=== PATIENT | female | born 1975 | race Caucasian/White ===

== ENCOUNTER 2017-12-26 16:10 | Outpatient (CLI) | payer OTHER | END 2017-12-26 16:11 | disposition home or self-care (01) | LOC: BICMAMMO 16:10 | PROVIDERS: ATTEND Obstetrics & Gynecology | DX: Z12.31 Encounter for screening mammogram for malignant neoplasm of breast (principal) | CPT/HCPCS: 77063; 77067 ==

== ENCOUNTER 2020-08-25 10:27 | Outpatient (CLI) | payer OTHER ==
--- NOTE | 2020-08-25 11:06 | RAD ---
XR Abdomen 2 View HISTORY: Constipation COMPARISON: None. FINDINGS: The bowel gas pattern is unremarkable. No free air or differential fluid levels are seen. There is fe tenisha material in the colon. No suspicious calcifications are identified. Bony structures are unremarkable.
== END 2020-08-25 10:28 | disposition home or self-care (01) ==
LOC: BICRAD 10:27
PROVIDERS: ATTEND Internal Medicine Gastroenterology
DX: K59.09 Other constipation (principal); K92.1 Melena
CPT/HCPCS: 74019

== ENCOUNTER 2020-09-13 13:16 | Outpatient (CLI) | payer OTHER ==
--- NOTE | 2020-09-13 14:38 | MMO ---
Bilateral MAMMO Bilat Screen [facility]. CLINICAL HISTORY: Patient is 45 years old and is seen for screening. The patient has the following family history of breast cancer: paternal grandmother, in her 60's. The patient has no personal history of cancer. VIEWS: The views performed were: bilateral craniocaudal with tomosynthesis and bilateral mediolateral oblique with tomosynthesis. FILMS COMPARED: The present examination has been compared to prior imaging studies performed at [facility] on 03/11/2015 and 12/26/2017. This study has been interpreted with the assistance of computer-aided detection. MAMMOGRAM FINDINGS: There are scattered fibroglandular densities. There are no suspicious masses, suspicious calcifications, or new areas of architectural distortion. IMPRESSION: THERE IS NO MAMMOGRAPHIC EVIDENCE OF MALIGNANCY. A ROUTINE FOLLOW-UP MAMMOGRAM IN 1 YEAR IS RECOMMENDED. THE RESULTS OF THIS EXAM WERE SENT TO THE PATIENT. ACR BI-RADS Category 1 - Negative MAMMOGRAPHY NOTE: 1. A negative mammogram report should not delay a biopsy if a dominant of clinically suspicious mass is present. 2. Approximately 10% to 15% of breast cancers are not detected by mammography. 3. Adenosis and dense breasts may obscure an underlying neoplasm. Reported by: ANTOLIN POLANCO MD Electonically Signed: [id number]
== END 2020-09-13 13:17 | disposition home or self-care (01) ==
LOC: BICMAMMO 13:16
PROVIDERS: ATTEND Family Medicine
DX: Z12.31 Encounter for screening mammogram for malignant neoplasm of breast (principal); Z80.3 Family history of malignant neoplasm of breast
CPT/HCPCS: 77063; 77067

== ENCOUNTER 2020-09-30 07:32 | Outpatient (CLI) | payer OTHER ==
--- NOTE | 2020-09-30 10:06 | ULT ---
HEPATIC ULTRASOUND WITH DOPPLER: INDICATION: Liver lesion. Liver disease. COMPARISON: Comparison is made to a hepatic ultrasound of 09/21/2008 and an MRI of abdomen of 12/18/2004. The lesio n in the liver has been previously described in the left lobe that is probable hemangioma. FINDINGS: Heterogeneous somewhat echogenic lesion in the left lobe of the liver is again seen. It has increase d in size when compared to the ultrasound exam of 10/01/2008. It measures 3.0 x 3.8 cm today. Prior measurements were 2.8 cm maximal dimension. Other than increasing size, it has similar imaging sinan acteristics to the prior study. Color Doppler no active disease spectral analysis with Doppler studies were performed on the hepatic vessels. Portal veins, hepatic veins, hepatic artery, aorta, and IVC are all evaluated and show norm al blood flow direction. The gallbladder shows echogenic sludge without focal gallstone. The gallbladder wall thickness is no rmal. The common duct is normal caliber at 5 mm. The pancreas is obscured. The spleen is unremarkable measuring 8 cm. The right kidney is not imaged. Abdominal aorta is imaged and shows normal caliber. IVC is imaged and is unremarkable. IMPRESSION: 1. The heterogeneous somewhat hyperechoic lesion in the left lobe of the liver which has been previo usly described as hemangioma is again seen. It has increased in size when compared to 2007 as descri bed. 2. All hepatic vessels show normal blood direction with Doppler studies. 3. Evidence of echogenic sludge in the gallbladder without evidence of gallstone. POS: [facility]
== END 2020-09-30 07:33 | disposition home or self-care (01) ==
LOC: ULT 07:32
PROVIDERS: ATTEND Physician Assistant Medical
DX: K59.09 Other constipation (principal); K76.89 Other specified diseases of liver; K82.4 Cholesterolosis of gallbladder
CPT/HCPCS: 76705

== ENCOUNTER 2021-01-12 07:40 | Outpatient (CLI) | payer OTHER | END 2021-01-12 07:41 | disposition home or self-care (01) | LOC: BICULT 07:40 | PROVIDERS: ATTEND Physician Assistant Medical | DX: K76.9 Liver disease, unspecified (principal); R16.0 Hepatomegaly, not elsewhere classified | CPT/HCPCS: 76705 ==

== ENCOUNTER 2021-07-20 09:17 | Emergency (ER) | payer OTHER ==
[2021-07-20 10:32] LABS: BHCG - Serum Negative (NEGATIVE); Pregs Control Background? CLEAR/WHITE (CLR/WHITE); Pregs Control Bar Appear? YES (CONTROL BAR)
[2021-07-20 10:33] LABS: #Eosinphils 0.1 thou/uL (0.0-0.7); #Lymphocytes 1.3 thou/uL (1.20-3.40); #Monocytes 0.3 thou/uL (0.11-0.59); #Neutrophils 3.5 thou/uL (1.40-6.50); %Basophils 0.8 % (0.0-1.0); %Eosinophils 1.4 % (0.0-10.0); %Lymphocytes 25.4 % (21.0-51.0); %Monocytes 6.1 % (0.0-10.0); %Neutrophils 66.3 % (42.0-75.0); Hemoglobin 14.5 g/dL (12.0-16.0); Mean Corpuscular HGB CONC 34.5 g/dL (32.0-36.0); Mean Corpuscular Volume 92.9 fL (78.0-98.0); Mean Platelet Volume 6.3 fL (7.4-10.4); Platelet Count 324 thou/uL (130-400); RBC Distribution Width 12.2 % (11.5-14.5); Red Blood Cell (RBC) Count 4.52 mill/uL (4.20-5.40); White Blood Cell (WBC) Count 5.3 thou/uL (4.8-10.8)
[2021-07-20 10:46] LABS: ALT (SGPT) 23 U/L (8-55); AST (SGOT) 22 U/L (5-34); Albumin 4.2 g/dL (3.5-5.0); Alkaline Phosphatase 63 U/L (40-110); Anion Gap 12 mmol/L (10-20); BUN (Urea Nitrogen) 9 mg/dL (7.0-18.7); Bilirubin, Total 0.7 mg/dL (0.2-1.2); Calc. Creatinine Clearance 0 mL/min (70-130); Calcium 9.6 mg/dL (7.8-10.44); Carbon Dioxide 26 mmol/L (22-29); Chloride 103 mmol/L (98-107); Globulin 2.9 g/dL (2.4-3.5); Glucose 85 mg/dL (70-105); Lipase 13 U/L (8-78); Potassium 3.9 mmol/L (3.5-5.1); Protein, Total 7.1 g/dL (6.0-8.3); Sodium 137 mmol/L (136-145)
[2021-07-20 12:43] LABS: Bacteria/HPF None Seen HPF (None Seen); Bilirubin Negative (Negative); Blood, Urine Negative (Negative); Clarity Clear (Clear); Glucose, Urine (Dipstick) Normal (Negative); Ketone, Urine Negative (Negative); Leukocyte 25 Leu/uL (Negative); Nitrite Negative (Negative); Protein, Urine (Dipstick) Negative (Neg-Trace); RBC/HPF 0-3 HPF (0-3); Specific Gravity, Urine 1.005 (1.002-1.036); Squamous Epithelial 0-3 HPF (0-3); Urobilinogen Normal mg/dL (Less than 2); WBC/HPF 0-3 HPF (0-3)
== END 2021-07-20 12:35 | disposition home or self-care (01) ==
LOC: ERS 09:17
DX: R10.13 Epigastric pain (principal); R11.0 Nausea
CPT/HCPCS: 36415; 76705; 80053; 81003; 81015; 83690; 84703; 85025; 93005

== ENCOUNTER 2021-07-27 08:06 | Outpatient (CLI) | payer OTHER | END 2021-07-27 08:07 | disposition home or self-care (01) | LOC: NM 08:06 | PROVIDERS: ATTEND Family Medicine | DX: R10.13 Epigastric pain (principal) | CPT/HCPCS: 78227; A9537 ==

== ENCOUNTER 2021-08-08 08:13 | Outpatient (CLI) | payer OTHER | END 2021-08-08 08:14 | disposition home or self-care (01) | LOC: BICCT 08:13 | PROVIDERS: ATTEND Family Medicine | DX: R10.84 Generalized abdominal pain (principal); K76.9 Liver disease, unspecified | CPT/HCPCS: 74150 ==

== ENCOUNTER 2021-10-23 07:10 | Outpatient (CLI) | payer BC ==
[2021-10-23 21:55] LABS: SARS-CoV-2 PCR by NAA Not Detected (NotDetected)
== END 2021-10-23 07:11 | disposition home or self-care (01) ==
LOC: LABBT 07:10
PROVIDERS: ATTEND Internal Medicine Gastroenterology
DX: Z01.812 Encounter for preprocedural laboratory examination (principal); Z20.822 Contact with and (suspected) exposure to COVID-19
CPT/HCPCS: U0003; U0005

== ENCOUNTER 2021-10-26 10:37 | Day surgery (SDC) | payer BC ==
[2021-10-19 11:25] VITALS: BMI 32.2
[2022-08-26] MEDS ORDERED: PROPOFOL 200 MG/20 ML VIAL ONE (13:00)
== END 2021-10-26 14:02 | disposition home or self-care (01) ==
LOC: SDC 10:37
PROVIDERS: ATTEND Internal Medicine Gastroenterology
PROC: 0DB78ZX Excision of Stomach, Pylorus, Via Natural or Artificial Opening Endoscopic, Diagnostic (ICD-10-PCS; principal; 2021-10-26)
PROC: 0DB38ZX Excision of Lower Esophagus, Via Natural or Artificial Opening Endoscopic, Diagnostic (ICD-10-PCS; principal; 2021-10-26)
DX: K21.00 Gastro-esophageal reflux disease with esophagitis, without bleeding (principal); K44.9 Diaphragmatic hernia without obstruction or gangrene; Z79.899 Other long term (current) drug therapy
CPT/HCPCS: 88305

== ENCOUNTER 2021-12-05 10:44 | Outpatient (CLI) | payer BC | END 2021-12-05 10:45 | disposition home or self-care (01) | LOC: BICMAMMO 10:44 | PROVIDERS: ATTEND Family Medicine | DX: Z12.31 Encounter for screening mammogram for malignant neoplasm of breast (principal); Z80.3 Family history of malignant neoplasm of breast | CPT/HCPCS: 77063; 77067 ==

== ENCOUNTER 2023-01-14 14:49 | Outpatient (CLI) | payer BC | END 2023-01-14 14:50 | disposition home or self-care (01) | LOC: BICMAMMO 14:49 | PROVIDERS: ATTEND Family Medicine | DX: Z12.31 Encounter for screening mammogram for malignant neoplasm of breast (principal); N64.89 Other specified disorders of breast; Z80.3 Family history of malignant neoplasm of breast | CPT/HCPCS: 77063; 77067 ==

== ENCOUNTER 2023-12-25 14:01 | Outpatient (CLI) | payer BC | END 2023-12-25 14:02 | disposition home or self-care (01) | LOC: BICULT 14:01 | PROVIDERS: ATTEND Family Medicine | DX: R10.2 Pelvic and perineal pain (principal); N83.201 Unspecified ovarian cyst, right side | CPT/HCPCS: 76856; 93976 ==

== ENCOUNTER 2024-03-06 10:38 | Outpatient (CLI) | payer BC | END 2024-03-06 10:39 | disposition home or self-care (01) | LOC: BICULT 10:38 | PROVIDERS: ATTEND Internal Medicine Gastroenterology | DX: K76.9 Liver disease, unspecified (principal); K21.9 Gastro-esophageal reflux disease without esophagitis | CPT/HCPCS: 76705 ==

== ENCOUNTER 2024-03-20 13:34 | Outpatient (CLI) | payer BC | END 2024-03-20 13:35 | disposition home or self-care (01) | LOC: ULT 13:34 | PROVIDERS: ATTEND Family Medicine | DX: R10.2 Pelvic and perineal pain (principal); N83.201 Unspecified ovarian cyst, right side; Z90.710 Acquired absence of both cervix and uterus | CPT/HCPCS: 76856; 93976 ==